=== PATIENT | female | born 1995 | race Caucasian/White ===

== ENCOUNTER 2020-08-11 16:39 | Emergency (ER) | payer OTHER ==
[~2020-08-11 16:39] MED LIST: IBUPROFEN600 MG PO; KEFLEX500 MG PO; ZOFRAN ODT 4 MG4 MG PO
[2020-08-11] MEDS ORDERED: NAPROSYN500 MG PO (18:08)
== END 2020-08-11 18:22 | disposition home or self-care (01) ==
LOC: ER1 16:39
DX: S46.911A Strain of unspecified muscle, fascia and tendon at shoulder and upper arm level, right arm, initial encounter (principal); X58.XXXA Exposure to other specified factors, initial encounter; Y92.89 Other specified places as the place of occurrence of the external cause; Y99.0 Civilian activity done for income or pay
CPT/HCPCS: 73030; 96372; 99283; J1885